=== PATIENT | male | born 1995 | race Caucasian/White ===

== ENCOUNTER 2018-12-13 18:26 | Emergency (ER) | payer BC, OTHER ==
[2018-12-13] MEDS ORDERED: Acetaminophen 325 MG TAB ONE (18:40)
[2018-12-13] MEDS ORDERED: HYDROcodone/Acetaminophen 5/325 mg Tablet ONE (18:40)
[2018-12-13] MEDS ORDERED: Ibuprofen 200 MG TAB ONE (18:40)
--- NOTE | 2018-12-13 18:55 | RAD ---
THREE VIEWS LEFT WRIST: 12/13/18 HISTORY: Fall with left wrist pain. AP, lateral, and oblique views left wrist is obtained. FINDINGS/IMPRESSION: Images demonstrate a transverse intra-articular fracture involving the distal epiphysis of the left r adius. The fracture is in a transverse plain across the distal most aspect of the radius extending in to the articulating surface. The fracture is through the radial styloid. POS: [facility]
== END 2018-12-13 19:22 | disposition home or self-care (01) ==
LOC: MADERS 18:26
DX: S52.515A Nondisplaced fracture of left radial styloid process, initial encounter for closed fracture (principal); S52.572A Other intraarticular fracture of lower end of left radius, initial encounter for closed fracture; W18.30XA Fall on same level, unspecified, initial encounter
CPT/HCPCS: 29125

== ENCOUNTER 2024-10-16 12:57 | Emergency (ER) | payer OTHER ==
[2024-10-16] MEDS ORDERED: Lidocaine 1% w/Epinephrine 1:100K 20 ML VIAL ONE (13:05)
[2024-10-16] MEDS ORDERED: Cephalexin 500 MG CAP ONE (13:18)
[2024-10-16] MEDS ORDERED: Boostrix 0.5 ML (Tdap) VIAL (>/=7 yrs of age) ONE (13:18)
== END 2024-10-16 14:09 | disposition home or self-care (01) ==
LOC: MADERS 12:57
DX: S81.812A Laceration without foreign body, left lower leg, initial encounter (principal); X58.XXXA Exposure to other specified factors, initial encounter; Y93.89 Activity, other specified; Z23 Encounter for immunization
CPT/HCPCS: 12002; 90471; 90715